=== PATIENT | male | born 1960 | race Two or more races ===

== ENCOUNTER 2018-06-17 13:50 | Emergency (ER) | payer MEDICAID ==
[~2018-06-17] VITALS: Ht 177.8 cm; Wt 103.0 kg
--- NOTE | 2018-06-17 13:50 | NUR ---
PT BIB SELF C/O PRESSURE LIKE LEFT SIDED CHEST PAIN X LAST NIGHT, LUE NUMBNESS, PT IS AAOX4, NOT IN RESPIRATORY DISTRESS, V/S STABLE, KEPT RESTED AND COMFOTABLE, HOOKED TO MONITOR.
--- NOTE | 2018-06-17 14:15 | NUR ---
PT LABS DRAWNED AND SENT TO LAB.
--- NOTE | 2018-06-17 14:35 | NUR ---
PT SEEN AND EXAMINED BY DR. BEARD.
[2018-06-17] MEDS ORDERED: ASPIRIN 81 MG TAB.CHEW ONE (14:47)
[2018-06-17] MEDS: ASPIRIN 81 MG TAB.CHEW PO ONE (14:48)
[2018-06-17 14:56] LABS: BASOPHILS % (AUTO) 0.6 % (0.0-2.0); EOSINOPHILS % (AUTO) 0.4 % (0.0-6.0); HEMATOCRIT 37 % (39-51); HEMOGLOBIN 11.5 g/dL (13.5-17.5); LYMPHOCYTES # (AUTO) 2.4 /CMM (0.8-4.8); MEAN CORPUSCULAR HGB CONC 31 g/dl (31.0-36.0); MEAN CORPUSCULAR VOLUME 67 fL (80-96); MONOCYTES # (AUTO) 0.6 /CMM (0.1-1.30); MONOCYTES % (AUTO) 7.9 % (2.0-12.0); NEUTROPHILS # (AUTO) 4.7 /CMM (1.8-8.9); NEUTROPHILS % (AUTO) 60.1 % (43.0-81.0); PLATELET COUNT (AUTO) 392 /CMM (150-450); RED BLOOD CELL COUNT(AUTO) 5.51 MIL/uL (4.5-6.0); WHITE BLOOD COUNT (AUTO) 7.8 K/uL (4.3-11.0)
--- NOTE | 2018-06-17 15:02 | NUR ---
RADIOLOGY AT BEDSIDE FOR XRAY.
[2018-06-17 15:21] LABS: CALCIUM, SERUM 8.7 mg/dL (8.5-10.1); CARBON DIOXIDE 26 mmol/L (21-32); CHLORIDE 103 mmol/L (98-107); CREATININE 0.9 mg/dL (0.6-1.3); GLUCOSE 97 mg/dL (74-106); POTASSIUM 4.6 mmol/L (3.5-5.1); SODIUM SERUM 138 mmol/L (136-145); UREA NITROGEN, BLOOD 21 mg/dL (7-18)
[2018-06-17 15:32] LABS: D-DIMER 0.21 mg/L(FEU (0.17-0.50)
[2018-06-17 15:34] LABS: ALANINE AMINOTRANSFERASE 23 U/L (12-78); ALKALINE PHOSPHATASE 61 U/L (46-116); ASPARTATE AMINOTRANSFERASE 7 U/L (15-37); BILIRUBIN,DIRECT 0.1 mg/dL (0.0-0.2); BILIRUBIN,TOTAL 0.4 mg/dL (0.2-1.0); TOTAL PROTEIN, SERUM 7.8 g/dL (6.4-8.2)
[2018-06-17] MEDS ORDERED: LISI-603 PO (16:11)
--- NOTE | 2018-06-17 16:32 | NUR ---
IV removed. Catheter intact and site benign. Pressure and 4x4 applied to site. No bleeding noted. Patient does not wish to proceed with medical care recommended by Dr. Mcbride. Patient given information related to possible complications, up to and including , which could occur as a result of leaving the hospital at this time. Patient verbalizes understanding of risks involved due to leaving against medical advice. Patient has signed AMA form.
[2018-06-17 16:33] VITALS: BP 139/72
== END 2018-06-17 16:34 | disposition left against medical advice (07) ==
LOC: ER 13:52
DX: R07.89 Other chest pain (principal); I10 Essential (primary) hypertension; K21.9 Gastro-esophageal reflux disease without esophagitis
CPT/HCPCS: 36415; 71045; 80048; 80076; 84484; 85025; 85730; 85378; 93005; 99284; A4606

== ENCOUNTER 2023-04-20 00:03 | Emergency (ER) | payer MEDICAID ==
[~2023-04-20] VITALS: Ht 177.8 cm; Wt 99.8 kg
[~2023-04-20 00:03] MED LIST: LISI20TA30 PO
[2023-04-20 00:12] VITALS: BP 123/65; TEMP 98
[2023-04-20 00:42] VITALS: O2SAT 97
== END 2023-04-20 00:42 | disposition home or self-care (01) ==
LOC: ER 00:06
DX: T16.2XXA Foreign body in left ear, initial encounter (principal); I10 Essential (primary) hypertension; K21.9 Gastro-esophageal reflux disease without esophagitis; Z79.899 Other long term (current) drug therapy; X58.XXXA Exposure to other specified factors, initial encounter; Y93.89 Activity, other specified; Y92.89 Other specified places as the place of occurrence of the external cause; Y99.8 Other external cause status